=== PATIENT | male | born 1975 | race Caucasian/White ===

== ENCOUNTER 2019-01-21 09:57 | Emergency (ER) | payer SELFPAY ==
[2019-01-21] MEDS: IBUPROFEN 600 MG TAB PO (11:14)
== END 2019-01-21 12:32 | disposition home or self-care (01) ==
LOC: FTE 09:57
DX: M25.572 Pain in left ankle and joints of left foot (principal); W01.0XXA Fall on same level from slipping, tripping and stumbling without subsequent striking against object, initial encounter; Y92.9 Unspecified place or not applicable
CPT/HCPCS: 73610; 99283-25